=== PATIENT | female | born 1980 | race African-American/Black ===

== ENCOUNTER 2017-07-19 06:01 | Observation (INO) | payer SELFPAY ==
[2017-07-19 06:37] LABS: ABSOLUTE EOSINOPHILS # (AUTO) 0.1 10^3/uL (0.0-0.6); ABSOLUTE LYMPHOCYTES (AUTO) 1.6 10^3/uL (0.5-4.7); ABSOLUTE MONOCYTES (AUTO) 0.6 10^3/uL (0.1-1.4); ABSOLUTE NEUT (AUTO) 6.2 10^3/uL (1.7-8.2); BASOPHILS % (AUTO) 0.5 % (0-2); EOSINOPHILS % (AUTO) 0.8 % (0-6); HEMATOCRIT 38.6 % (36.0-47.0); HEMOGLOBIN 12.5 g/dL (12.0-15.5); LYMPHOCYTES % (AUTO) 19.4 % (13-45); MEAN CORPUSCULAR HEMOGLOBIN 24.8 pg (27.0-33.4); MEAN CORPUSCULAR HGB CONC 32.5 g/dL (32.0-36.0); MEAN CORPUSCULAR VOLUME 76 fl (80-97); MONOCYTES % (AUTO) 6.5 % (3-13); PLATELET COUNT 277 10^3/uL (150-450); RED BLOOD COUNT 5.06 10^6/uL (3.72-5.28); RED CELL DISTRIBUTION WIDTH 16.8 % (11.5-14.0); SEGMENTED NEUTROPHILS % (AUTO) 72.8 % (42-78); TOTAL CELLS COUNTED % (AUTO) 100 %; WHITE BLOOD COUNT 8.5 10^3/uL (4.0-10.5)
[2017-07-19] MEDS ORDERED: MORPHINE SULFATE 10 MG/ML INJ IV ONE (06:38)
[2017-07-19] MEDS ORDERED: ONDANSETRON HCL INJ/PF 4 MG/2 ML SDV IV ONE (06:38)
[2017-07-19] MEDS: NORMAL SALINE 1000 ML 1,000 ML IV PRN ×3 (06:50→18:40)
[2017-07-19 06:56] LABS: ALANINE AMINOTRANSFERASE 18 U/L (9-52); ALBUMIN 4.1 g/dL (3.5-5.0); ALKALINE PHOSPHATASE 103 U/L (38-126); ANION GAP 10 (5-19); ASPARTATE AMINO TRANSFERASE 16 U/L (14-36); BILIRUBIN,DIRECT 0.2 mg/dL (0.0-0.4); BILIRUBIN,TOTAL 0.2 mg/dL (0.2-1.3); BLOOD UREA NITROGEN 7 mg/dL (7-20); CALCIUM 9.4 mg/dL (8.4-10.2); CARBON DIOXIDE 29 mmol/L (22-30); CHLORIDE 106 mmol/L (98-107); GLUCOSE 114 mg/dL (75-110); POTASSIUM 3.8 mmol/L (3.6-5.0); SODIUM 145.1 mmol/L (137-145); TOTAL PROTEIN 7.7 g/dL (6.3-8.2)
[2017-07-19 08:23] LABS: APPEARANCE,URINE SLIGHTLY-CLOUDY; BILIRUBIN,URINE NEGATIVE (NEGATIVE); COLOR,URINE YELLOW; GLUCOSE, URINE NEGATIVE (NEGATIVE); KETONES,URINE TRACE mg/dL (NEGATIVE); LEUKOCYTE ESTERASE,URINE NEGATIVE (NEGATIVE); NITRITE,URINE NEGATIVE (NEGATIVE); PROTEIN,URINE NEGATIVE (NEGATIVE); URINE SPECIFIC GRAVITY 1.021
--- NOTE | 2017-07-19 08:58 | RADIOLOGY REPORT (SQ) ---
EXAM DESCRIPTION: U/S ABDOMEN LIMITED W/O DOP COMPLETED DATE/TIME: 07/19/2017 8:43 am REASON FOR STUDY: ruq pain COMPARISON: None. TECHNIQUE: Dynamic and static grayscale images acquired of the abdomen and recorded on PACS. Additio cordelia selected color Doppler and spectral images recorded. LIMITATIONS: None. FINDINGS: PANCREAS: No masses. Visualized pancreatic duct normal caliber. LIVER: Normal size. 13.2 cm. Normal echotexture. No masses. LIVER VASCULATURE: Normal directional flow of the main portal vein and hepatic veins. GALLBLADDER: Moderate dilatation. 1.9 cm gallstone and surrounding sludge. ULTRASOUND-DETECTED FISCHER'S SIGN: Positive. INTRAHEPATIC DUCTS AND COMMON DUCT: CBD and intrahepatic ducts normal caliber. No filling defects. INFERIOR VENA CAVA: Normal flow. AORTA: No aneurysm. RIGHT KIDNEY: Normal size. Normal echogenicity. No solid or suspicious masses. No hydronephrosis. No calcifications. PERITONEAL AND RIGHT PLEURAL SPACE: No ascites or effusions. OTHER: No other significant findings. IMPRESSION: Cholelithiasis and probable cholecystitis based on dilatation of the gallbladder and pos itive Fischer's sign. TECHNICAL DOCUMENTATION: JOB ID: [id number] [employer]- All Rights Reserved Reading location - IP/workstation name: [email or web address]
--- NOTE | 2017-07-19 09:24 | ER Document Report ---
ED General - General Chief Complaint: Nausea/Vomiting Stated Complaint: VOMITING Time Seen by Provider: 07/19/17 06:28 TRAVEL OUTSIDE OF THE [place] IN LAST 30 DAYS: No - HPI Patient complains to provider of: Nausea vomiting right upper quadrant abdominal pain Notes: Patient coming in for evaluation of right upper quadrant abdominal pain patient states last meal was a barbecue sounds. Patient states multiple bouts of nausea vomiting right upper quadrant pain. Denies any past medical history states surgeries positive for and tubal ligation. Patient resting comfortably upon my evaluation denies any fevers or chills denies any diarrhea denies any recent antibiotic use. Denies any trauma. - Related Data Allergies/Adverse Reactions: No Known Allergies Allergy (Verified 07/19/17 10:51) Past Medical History - Social History Smoking Status: Current Every Day Smoker Chew tobacco use (# tins/day): No Frequency of alcohol use: Rare Drug Abuse: None Family History: Reviewed & Not Pertinent Patient has suicidal ideation: No Patient has homicidal ideation: No Renal/ Medical History: Denies: Hx Peritoneal Dialysis - Immunizations Hx Diphtheria, Pertussis, Tetanus Vaccination: Yes Review of Systems - Review of Systems Constitutional: No symptoms reported EENT: No symptoms reported Cardiovascular: No symptoms reported Respiratory: No symptoms reported Gastrointestinal: Abdominal pain, Nausea, Vomiting Genitourinary: No symptoms reported Female Genitourinary: No symptoms reported Musculoskeletal: No symptoms reported Skin: No symptoms reported Hematologic/Lymphatic: No symptoms reported Neurological/Psychological: No symptoms reported Physical Exam - Vital signs Vitals: Temp Pulse Resp BP Pulse Ox 97.9 F 65 16 130/63 H 98 07/19/17 06:13 07/19/17 06:13 07/19/17 06:13 07/19/17 06:13 07/19/17 06:13 Interpretation: Normal - General General appearance: Appears well, Alert - HEENT Head: Normocephalic, Atraumatic Eyes: Normal Pupils: PERRL - Respiratory Respiratory status: No respiratory distress Chest status: Nontender Breath sounds: Normal Chest palpation: Normal - Cardiovascular Rhythm: Regular Heart sounds: Normal auscultation Murmur: No - Abdominal Inspection: Normal Distension: No distension Bowel sounds: Normal Tenderness: Tender - Right upper quadrant abdominal tenderness with positive Fischer sign guarding no rebound Organomegaly: No organomegaly - Back Back: Normal, Nontender - Extremities General upper extremity: Normal inspection, Nontender, Normal color, Normal ROM , Normal temperature General lower extremity: Normal inspection, Nontender, Normal color, Normal ROM , Normal temperature, Normal weight bearing. No: Kapil's sign - Neurological Neuro grossly intact: Yes Cognition: Normal Orientation: AAOx4 Carol Coma Scale Eye Opening: Spontaneous Farrell Coma Scale Verbal: Oriented Farrell Coma Scale Motor: Obeys Commands Carol Coma Scale Total: 15 Speech: Normal Motor strength normal: LUE, RUE, LLE, RLE Sensory: Normal - Psychological Associated symptoms: Normal affect, Normal mood - Skin Skin Temperature: Warm Skin Moisture: Dry Skin Color: Normal Course - Re-evaluation Re-evalutation: 07/19/17 09:24 Notified surgeon demonstrator sewing techniques of ultrasound findings 07/19/17 13:52 Patient's ultrasound shows possible signs of acute cholecystitis with cholelithiasis. Patient's laboratory studies not showing signs of obstruction no white count. I did call the surgeon demonstrator sewing techniques with these results was down bedside to evaluate patient will take to the OR for cholecystectomy more likely - Vital Signs Vital signs: Temp Pulse Resp BP Pulse Ox 98.0 F 78 18 114/74 97 07/19/17 13:30 07/19/17 13:30 07/19/17 13:30 07/19/17 13:30 07/19/17 13:30 - Laboratory Result Diagrams: 07/19/17 06:20 07/19/17 06:20 Laboratory results interpreted by me: 07/19/17 07/19/17 07/19/17 06:20 06:20 07:53 MCV 76 L MCH 24.8 L RDW 16.8 H Sodium 145.1 H Glucose 114 H Urine Ketones TRACE H Urine Urobilinogen 4.0 H Discharge - Discharge Clinical Impression: Acute cholecystitis Cholelithiasis Qualifiers: Cholelithiasis location: gallbladder Cholecystitis presence: with cholecystitis Cholecystitis acuity: acute Biliary obstruction: without biliary obstruction Qualified Code(s): K80.00 - Calculus of gallbladder with acute cholecystitis without obstruction Condition: Good Disposition: ADMITTED OBSERVATION Admitting Provider: Surgicalist - [facility] Admitted: OR
[2017-07-19] MEDS ORDERED: VECURONIUM BROMIDE INJ 10 MG VIAL IV ONE (09:43)
[2017-07-19] MEDS ORDERED: GLYCOPYRROLATE INJ 0.4 MG/2 ML VIAL ONE (09:43)
[2017-07-19] MEDS ORDERED: SUCCINYLCHOLINE CHLORIDE INJ 200 MG/10 ML VIAL ONE (09:43)
[2017-07-19] MEDS ORDERED: NEOSTIGMINE METHYLSULFATE 10 MG/10 ML VIAL ONE (09:43)
--- NOTE | 2017-07-19 10:32 | PDOC H&P ---
History of Present Illness Admission Date/PCP: 07/19/17 Patient complains of: RUQ pain History of Present Illness: VISHAL SHARIF is a 36 year old female with a 12 hr hx of RUQ pain, nausea, vomiting, chills, no fever, no diarrhea or hematemesis. She reports similar episodes on the past. Social History Smoking Status: Current Every Day Smoker Family History Family History: Reviewed & Not Pertinent Parental Family History Reviewed: No Children Family History Reviewed: No Sibling(s) Family History Reviewed.: No Medication/Allergy Home Medications: No Home Medications 07/19/17 Allergies/Adverse Reactions: No Known Allergies Allergy (Unverified 10/28/12 21:26) Physical Exam Vital Signs: Temp Pulse Resp BP Pulse Ox 97.9 F 65 16 130/63 H 98 07/19/17 06:13 07/19/17 06:13 07/19/17 06:13 07/19/17 06:13 07/19/17 06:13 Intake & Output 07/18/17 07/19/17 07/20/17 06:59 06:59 06:59 Weight 104.3 kg General appearance: PRESENT: no acute distress, cooperative Eye exam: PRESENT: conjunctival injection, EOMI Neck exam: PRESENT: full ROM Respiratory exam: PRESENT: clear to auscultation michell Cardiovascular exam: PRESENT: RRR GI/Abdominal exam: PRESENT: hypoactive bowel sounds, soft, tenderness - RUQ Rectal exam: PRESENT: deferred Neurological exam: PRESENT: alert, altered, reflexes normal Skin exam: PRESENT: warm Results Laboratory Results: 07/19/17 06:20 07/19/17 06:20 07/19/17 07/19/17 07/19/17 06:20 06:20 06:20 WBC 8.5 RBC 5.06 Hgb 12.5 Hct 38.6 MCV 76 L MCH 24.8 L MCHC 32.5 RDW 16.8 H Plt Count 277 Seg Neutrophils % 72.8 Lymphocytes % 19.4 Monocytes % 6.5 Eosinophils % 0.8 Basophils % 0.5 Absolute Neutrophils 6.2 Absolute Lymphocytes 1.6 Absolute Monocytes 0.6 Absolute Eosinophils 0.1 Absolute Basophils 0.0 Sodium 145.1 H Potassium 3.8 Chloride 106 Carbon Dioxide 29 Anion Gap 10 BUN 7 Creatinine 0.86 Est GFR ( Amer) > 60 Est GFR (Non-Af Amer) > 60 Glucose 114 H Calcium 9.4 Total Bilirubin 0.2 AST 16 ALT 18 Alkaline Phosphatase 103 Total Protein 7.7 Albumin 4.1 Lipase 73.0 Serum HCG, Qual NEGATIVE Urine Color Urine Appearance Urine pH Ur Specific [place] Urine Protein Urine Glucose (UA) Urine Ketones Urine Blood Urine Nitrite Ur Leukocyte Esterase Urine WBC (Auto) Urine RBC (Auto) 07/19/17 07:53 WBC RBC Hgb Hct MCV MCH MCHC RDW Plt Count Seg Neutrophils % Lymphocytes % Monocytes % Eosinophils % Basophils % Absolute Neutrophils Absolute Lymphocytes Absolute Monocytes Absolute Eosinophils Absolute Basophils Sodium Potassium Chloride Carbon Dioxide Anion Gap BUN Creatinine Est GFR ( Amer) Est GFR (Non-Af Amer) Glucose Calcium Total Bilirubin AST ALT Alkaline Phosphatase Total Protein Albumin Lipase Serum HCG, Qual Urine Color YELLOW Urine Appearance SLIGHTLY-CLOUDY Urine pH 7.0 Ur Specific [place] 1.021 Urine Protein NEGATIVE Urine Glucose (UA) NEGATIVE Urine Ketones TRACE H Urine Blood NEGATIVE Urine Nitrite NEGATIVE Ur Leukocyte Esterase NEGATIVE Urine WBC (Auto) 2 Urine RBC (Auto) 3 Impressions: Abdomen Ultrasound 07/19/17 06:38 IMPRESSION: Cholelithiasis and probable cholecystitis based on dilatation of the gallbladder and positive Fischer's sign. Assessment & Plan - Diagnosis (1) Cholelithiases Qualifiers: Cholelithiasis location: gallbladder Cholecystitis presence: with cholecystitis Cholecystitis acuity: acute Biliary obstruction: without biliary obstruction Qualified Code(s): K80.00 - Calculus of gallbladder with acute cholecystitis without obstruction Is this a current diagnosis for this admission?: Yes - Plan Summary Plan Summary: A/ RUQ pain Cholelythiasis with cholecystitis Normal WBC and liver profile P/ NS IV bilus 1 L x 2 Mefoxin 2 gr IVPB preop Plan laparoscopic cholecystectomy, possible open, possible cholangiogram Procedure, risks, benefits, complications including bleeding from the liver and or injury of the common bile duct which might require transfer to a tertiary center for open repair discussed with the patient, she understands and decides to proceed.
[2017-07-19] MEDS ORDERED: NORMAL SALINE 1000 ML 1,000 ML IV ONE (10:37)
[2017-07-19] MEDS ORDERED: NORMAL SALINE 1000 ML 2,000 ML IV PRN (10:37)
[2017-07-19] MEDS ORDERED: CEFOXITIN SODIUM 2 GM in DEXTROSE 5%-WATER 100 ML IV PRN (11:30)
[2017-07-19] MEDS ORDERED: HYDROMORPHONE HCL INJ/PF 2 MG/ML AMPULE IV ONE (12:29)
[2017-07-19] MEDS ORDERED: BUPIVACAINE HCL 0.5%-EPI 1:200000 INJ/PF 30 ML VIAL ONE (12:46)
[2017-07-19] MEDS ORDERED: LIDOCAINE 2% INJ-PF (20 MG/ML) 10 ML AMPUL ONE (13:54)
[2017-07-19] MEDS ORDERED: FENTANYL CITRATE INJ/PF 100 MCG/2 ML AMPUL ONE (13:54)
[2017-07-19] MEDS ORDERED: MIDAZOLAM 2 MG/2 ML INJ ONE (13:55)
[2017-07-19] MEDS ORDERED: ONDANSETRON HCL INJ/PF 4 MG/2 ML SDV ONE (13:55)
[2017-07-19] MEDS ORDERED: DEXAMETHASONE SOD PHOSPHATE INJ 4 MG/1 ML VIAL ONE (13:55)
[2017-07-19] MEDS ORDERED: PROPOFOL INJ 200 MG/20 ML VIAL IV ONE (13:55)
[2017-07-19] MEDS ORDERED: ACETAMINOPHEN 100 ML IV ONE (13:55)
[2017-07-19] MEDS ORDERED: DIPHENHYDRAMINE HCL 50 MG/ML VIAL IV PRN (14:35)
[2017-07-19] MEDS ORDERED: FENTANYL CITRATE INJ/PF 100 MCG/2 ML AMPUL IV PRN ×3 (14:35)
[2017-07-19] MEDS ORDERED: ONDANSETRON HCL INJ/PF 4 MG/2 ML SDV IV PRN ×2 (14:35→17:33)
[2017-07-19] MEDS ORDERED: MEPERIDINE HCL/PF INJ 25 MG/1 ML DISP.SYRIN IV PRN (14:35)
[2017-07-19] MEDS ORDERED: PROMETHAZINE HCL INJ 25 MG/1 ML VIAL IV PRN ×2 (14:35)
[2017-07-19] MEDS ORDERED: MORPHINE SULFATE 10 MG/ML INJ IV PRN (14:35)
[2017-07-19] MEDS: FENTANYL CITRATE INJ/PF 100 MCG/2 ML AMPUL ONE ×2 (16:42→16:47)
--- NOTE | 2017-07-19 17:05 | Operative Report ---
Nonrecallable Operative Report DATE OF SURGERY: 07/19/17 PREOPERATIVE DIAGNOSIS: cholecystitis, cholelythiasis POSTOPERATIVE DIAGNOSIS: chronic cholecystitis, cholelythiasis OPERATION: laparosocpic cholecystectomy SURGEON: CYNTHIA DUKE ANESTHESIA: GA - plus local 30 ml 0.5% marcaine TISSUE REMOVED OR ALTERED: gallbladder COMPLICATIONS: none ESTIMATED BLOOD LOSS: < 10 mL INTRAOPERATIVE FINDINGS: chronically inflamed gallbladder with cholelithiasis PROCEDURE: see dictation
[2017-07-19] MEDS ORDERED: KETOROLAC TROMETHAMINE INJ/PF 30 MG/1 ML SDV ONE (17:08)
[2017-07-19] MEDS ORDERED: MORPHINE SULFATE 10 MG/ML INJ ONE (17:12)
--- NOTE | 2017-07-19 18:39 | OPERATIVE REPORT E ---
Operative Report NAME: VISHAL SHARIF : 1980 AGE: 36Y DATE OF SURGERY: 07/19/2017 ROOM: ED18 PREOPERATIVE DIAGNOSIS: CHOLELITHIASIS, CHOLECYSTITIS, CHRONIC TYPE. POSTOPERATIVE DIAGNOSIS: CHOLELITHIASIS, CHOLECYSTITIS, CHRONIC TYPE. OPERATION: Laparoscopic cholecystectomy. SURGEON: CNYTHIA DUKE M.D. WEBLOGIC DEVELOPER: None. ESTIMATED BLOOD LOSS: Minimal, less than 20 mL. COMPLICATIONS: None. ANESTHESIA: General plus 20 mL of 0.5% Marcaine with epinephrine. DRAINS: None. INDICATION AND FINDINGS: A 36-year-old female who presented to the Emergency Room this morning with a complaint of right upper quadrant pain, intense nausea, found to have acute cholecystitis and cholelithiasis on ultrasound. The decision was made to take the patient to surgery for laparoscopic cholecystectomy, possible open, possible cholangiogram. Procedure risks, benefits, and complications including possibility of injury to or bleeding from the liver and/or injury to common duct which may require transfer to a tertiary center for repairs was discussed with the patient. She understands all the above and decided to proceed. DESCRIPTION OF PROCEDURE: The procedure was one in the operating room. Patient was placed in the supine position. General anesthesia was induced by endotracheal intubation. The abdomen was prepped and draped in the usual fashion. A small incision was made just above the umbilicus. The skin was tented with towel clips and the 5 mm port with O2 adaptor and scope was inserted through the abdominal wall into the peritoneal cavity. Two additional ports, a 12 mm and two 5 mm ports were inserted into the epigastrium the and right lateral quadrant of the abdomen. The patient was placed in a reverse Trendelenburg position with the right side elevated. The gallbladder was grasped at the level of the fundus, elevated, retroflexed. The cystic neck was then grasped and pulled anterior toward the patient's right to expose the triangle of Calot. The critical view of safety was obtained by dividing the peritoneal attachments medially and laterally to the cystic duct and cystic neck followed by complete dissection of the cystic duct. After this was performed and the critical view of safety was obtained, the cystic duct was doubly clipped proximally and distally and divided with scissors. The gallbladder was dissected off the liver bed using a cautery, extracted from the peritoneal cavity with an Endobag. CO2 pneumoperitoneum was already established. The liver bed was inspected. A few bleeders were cauterized. The liver bed was examined and found to be free from active bleeding. The peritoneal cavity was irrigated with normal saline, about 1 L, which was fully aspirated. The epigastric fascial defect was closed with [id number] 0 Vicryl suture, placed with a fascial closure device under direct visualization. All instruments were removed. The CO2 pneumoperitoneum was released. The ports were removed. The fascial defect of the epigastrium closed with a [id number] 0 Vicryl suture. All skin incisions were closed with a running subcuticular 4-0 Vicryl suture with Dermabond and a pressure dressing. The patient tolerated the procedure well, extubated, transferred to the recovery room in satisfactory condition. DICTATING PHYSICIAN: CYNTHIA DUKE M.D. [id number] PHY#: [id number] ID: [id number] JOB#: [id number] ACCT: [id number] cc:CYNTHIA DUKE M.D. > MTDD
[2017-07-19] MEDS: HYDROMORPHONE HCL INJ/PF 2 MG/ML AMPULE IV PRN (20:14)
[2017-07-19] MEDS: CEFOXITIN SODIUM 2 GM in DEXTROSE 5%-WATER 100 ML IV SCH (22:04)
[2017-07-19] MEDS: FAMOTIDINE INJ/PF 20 MG/2 ML SDV IV SCH (22:04)
[2017-07-20] MEDS: NORMAL SALINE 1000 ML 1,000 ML IV PRN (03:05)
[2017-07-20] MEDS: HYDROMORPHONE HCL INJ/PF 2 MG/ML AMPULE IV PRN ×3 (04:27→12:19)
[2017-07-20] MEDS: CEFOXITIN SODIUM 2 GM in DEXTROSE 5%-WATER 100 ML IV SCH (05:51)
[2017-07-20 06:30] LABS: ABSOLUTE LYMPHOCYTES (AUTO) 1.8 10^3/uL (0.5-4.7); ABSOLUTE MONOCYTES (AUTO) 0.6 10^3/uL (0.1-1.4); ABSOLUTE NEUT (AUTO) 9.1 10^3/uL (1.7-8.2); BASOPHILS % (AUTO) 0.2 % (0-2); EOSINOPHILS % (AUTO) 0.1 % (0-6); HEMATOCRIT 33.7 % (36.0-47.0); HEMOGLOBIN 10.7 g/dL (12.0-15.5); LYMPHOCYTES % (AUTO) 15.5 % (13-45); MEAN CORPUSCULAR HEMOGLOBIN 24.3 pg (27.0-33.4); MEAN CORPUSCULAR HGB CONC 31.7 g/dL (32.0-36.0); MEAN CORPUSCULAR VOLUME 77 fl (80-97); MONOCYTES % (AUTO) 4.9 % (3-13); PLATELET COUNT 234 10^3/uL (150-450); RED BLOOD COUNT 4.38 10^6/uL (3.72-5.28); RED CELL DISTRIBUTION WIDTH 16.8 % (11.5-14.0); SEGMENTED NEUTROPHILS % (AUTO) 79.3 % (42-78); TOTAL CELLS COUNTED % (AUTO) 100 %; WHITE BLOOD COUNT 11.5 10^3/uL (4.0-10.5)
[2017-07-20 06:49] LABS: ALANINE AMINOTRANSFERASE 36 U/L (9-52); ALBUMIN 3.2 g/dL (3.5-5.0); ALKALINE PHOSPHATASE 84 U/L (38-126); ANION GAP 8 (5-19); ASPARTATE AMINO TRANSFERASE 44 U/L (14-36); BILIRUBIN,DIRECT 0.3 mg/dL (0.0-0.4); BILIRUBIN,TOTAL 0.3 mg/dL (0.2-1.3); BLOOD UREA NITROGEN 4 mg/dL (7-20); CALCIUM 8.5 mg/dL (8.4-10.2); CARBON DIOXIDE 24 mmol/L (22-30); CHLORIDE 108 mmol/L (98-107); GLUCOSE 114 mg/dL (75-110); POTASSIUM 3.9 mmol/L (3.6-5.0); SODIUM 140.4 mmol/L (137-145); TOTAL PROTEIN 6.2 g/dL (6.3-8.2)
[2017-07-20] MEDS: FAMOTIDINE INJ/PF 20 MG/2 ML SDV IV SCH (08:17)
--- NOTE | 2017-07-20 13:13 | PDOC PROGRESS REPORT ---
Subjective Progress Note for:: 07/20/17 Subjective:: no c/o, comfortable Reason For Visit: LAPROSCOPIC CHOLECYSTECTOMY Physical Exam Vital Signs: Temp Pulse Resp BP Pulse Ox 98.8 F 63 17 146/85 H 98 07/20/17 12:45 07/20/17 12:45 07/20/17 12:45 07/20/17 12:45 07/20/17 12:45 Intake & Output 07/19/17 07/20/17 07/21/17 06:59 06:59 06:59 Intake Total 4175 540 Output Total 1610 Balance 2565 540 General appearance: PRESENT: no acute distress, cooperative Respiratory exam: PRESENT: clear to auscultation michell Cardiovascular exam: PRESENT: RRR GI/Abdominal exam: PRESENT: normal bowel sounds, soft, other - incisions c/d/i Results Laboratory Results: 07/20/17 06:05 07/20/17 06:05 07/20/17 07/20/17 06:05 06:05 WBC 11.5 H RBC 4.38 Hgb 10.7 L Hct 33.7 L MCV 77 L MCH 24.3 L MCHC 31.7 L RDW 16.8 H Plt Count 234 Seg Neutrophils % 79.3 H Lymphocytes % 15.5 Monocytes % 4.9 Eosinophils % 0.1 Basophils % 0.2 Absolute Neutrophils 9.1 H Absolute Lymphocytes 1.8 Absolute Monocytes 0.6 Absolute Eosinophils 0.0 Absolute Basophils 0.0 Sodium 140.4 Potassium 3.9 Chloride 108 H Carbon Dioxide 24 Anion Gap 8 BUN 4 L Creatinine 0.61 Est GFR ( Amer) > 60 Est GFR (Non-Af Amer) > 60 Glucose 114 H Calcium 8.5 Total Bilirubin 0.3 AST 44 H ALT 36 Alkaline Phosphatase 84 Total Protein 6.2 L Albumin 3.2 L Impressions: Abdomen Ultrasound 07/19/17 06:38 IMPRESSION: Cholelithiasis and probable cholecystitis based on dilatation of the gallbladder and positive Fischer's sign. Assessment & Plan - Diagnosis (1) Cholelithiases Qualifiers: Cholelithiasis location: gallbladder Cholecystitis presence: with cholecystitis Cholecystitis acuity: acute Biliary obstruction: without biliary obstruction Qualified Code(s): K80.00 - Calculus of gallbladder with acute cholecystitis without obstruction Is this a current diagnosis for this admission?: Yes - Plan Summary Plan Summary: A/ POD #1 after laparoscopic cholecystectomy VSS, AF blood work WNL except for slight leukocytosis PE unremarkable P/ Home today tomorrow resume all activities including driving resume diet and meds Shower only x 2 week, then can bathe F/U in surgery Clinic next week No wound care needed Tylenol/Aleve as needed for pain
--- NOTE | 2017-07-20 13:29 | DISCHARGE SUMMARY E ---
Discharge Summary NAME: VISHAL SHARIF : 1980 AGE: 36Y ADMITTED: 07/19/2017 DISCHARGED: 07/20/2017 FINAL DIAGNOSES: 1. Acute cholecystitis. 2. Cholelithiasis. PROCEDURE: On July 19, 2017, the patient underwent laparoscopic cholecystectomy. COMPLICATIONS: None. HOSPITAL COURSE: This is a healthy 36-year-old female who presented to the emergency room with right upper quadrant pain, intense nausea, emesis and found to have cholelithiasis with inflamed gallbladder. The patient was taken to surgery the same day. She underwent an uneventful laparoscopic cholecystectomy. Her postop course was uneventful. Vital signs remained stable. Her diet was tolerated. Her blood work on postop day #1 showed a slight elevation of the white blood cell count to 12, and a slight elevation of AST, ALT. She was then discharged on July 20. She was given a followup appointment for the Surgery clinic in about a week. She was given instructions to shower only for 2 weeks, and then she can bathe. Activities as tolerated starting tomorrow, with driving allowed. No wound care needed. She was given Tylenol as needed for pain. She was instructed to resume her activities and regular diet. DICTATING PHYSICIAN: CYNTHIA DUKE M.D. [id number] PHY#: [id number] ID: [id number] JOB#: [id number] ACCT: [id number] cc:Dawna SANTILLAN MD, M.D. EMitzi RMitzi [facility], [facility]
[2017-07-20 13:42] VITALS: BP 114/74
== END 2017-07-20 14:50 | disposition home or self-care (01) ==
LOC: ER 06:01 → EH 13:06 → 2N 18:00
PROVIDERS: ATTEND Surgery
PROC: 0FT44ZZ Resection of Gallbladder, Percutaneous Endoscopic Approach (ICD-10-PCS; principal; 2017-07-19 14:15)
DX: K80.12 Calculus of gallbladder with acute and chronic cholecystitis without obstruction (principal); F17.200 Nicotine dependence, unspecified, uncomplicated; Z98.51 Tubal ligation status
CPT/HCPCS: 99285; 96361; 96374; 96375; 36415 ×2; 87040; 83690; 84703; 85025 ×2; 80053 ×2; 81001; 88304 ×2; 76705; 94799; 47562; G0378 ×3; J2250; J3490 ×3; J1100; J0694 ×2; J3010; J1885; J2270; J1170 ×2; J0330; J2405; J7030 ×2; J2704; S0028 ×2; J0131; 790